=== PATIENT | male | born 1950 | race Caucasian/White ===

== ENCOUNTER 2019-08-20 13:26 | Inpatient (IN) | payer MEDICARE ==
[~2019-08-20] VITALS: Ht 182.9 cm; Wt 97.5 kg
[2019-08-20 14:00] LABS: BASO % 0.5 % (0.0-2.0); EOS # 0.2 (0.0-0.7); EOS % 2.6 % (0-4.0); GRAN % 72.4 % (42.2-75.2); HEMOGLOBIN 11.2 g/dl (13.5-18.0); LYMPH # 1.4 (1.2-3.4); LYMPH % 16.9 % (20.0-51.0); MEAN CELL VOLUME 92 fl (80.0-100.0); MEAN CORPUSCULAR HEMOGLOBIN 29 pg (27.0-31.0); MEAN CORPUSCULAR HGB CONC 32 g/dl (33.0-37.0); MEAN PLATELET VOLUME 9.6 fl (7.4-10.4); MONO # 0.6 (0.1-0.6); MONO % 7.2 % (1.7-9.3); PLATELET COUNT 192 K/mm3 (130-400); RED BLOOD COUNT 3.85 M/mm3 (4.20-5.60); REDCELL DISTRIBUTION WIDTH-CV 15.4 % (11.5-14.5)
[2019-08-20 14:01] LABS: HEMATOCRIT 35.3 % (42.0-52.0)
[2019-08-20 14:05] LABS: INR 1.6 (0.8-3.0); PROTHROMBIN TIME 19.4 SECONDS (9.7-12.8)
[2019-08-20 14:07] LABS: ALBUMIN 3.9 gm/dL (3.5-5.0); BILIRUBIN,TOTAL 0.4 mg/dL (0.0-1.0); CALCIUM 8.6 mg/dL (8.4-10.2); CREATININE, serum 2.12 (0.66-1.25); POTASSIUM 3.9 mmol/L (3.4-5.0); TOTAL PROTEIN 7.4 gm/dL (6.4-8.2)
[2019-08-20] MEDS ORDERED: LIPITOR 80MG80 MG PO (14:18)
[2019-08-20] MEDS ORDERED: TYLENOL 325MG325 MG PO (14:18)
[2019-08-20] MEDS ORDERED: COREG 25MG25 MG/TAB PO (14:19)
[2019-08-20] MEDS ORDERED: CALCITRIOL PO (14:19)
[2019-08-20 14:20] LABS: TROPONIN-I 0.016 ng/mL (0.000-0.035)
[2019-08-20] MEDS ORDERED: COLESTID 1GM1 G PO (14:20)
[2019-08-20] MEDS ORDERED: CLARITIN 1010 MG/TAB PO (14:20)
[2019-08-20] MEDS ORDERED: COUMADIN 1MG1 MG/TAB PO (14:21)
[2019-08-20] MEDS ORDERED: FLEXERIL 1010 MG/TAB PO (14:22)
[2019-08-20] MEDS ORDERED: LOMOTIL 0.025 M1 TAB PO (14:22)
[2019-08-20] MEDS ORDERED: COUMADIN 2MG2 MG/TAB PO (14:22)
[2019-08-20] MEDS ORDERED: IMDUR 30MG30 MG/TAB PO (14:23)
[2019-08-20] MEDS ORDERED: NEURONTIN600 MG/TAB PO (14:23)
[2019-08-20] MEDS ORDERED: ZESTRIL 20MG TA20 MG PO (14:24)
[2019-08-20] MEDS ORDERED: LANTUS100 U/ML SQ (14:24)
[2019-08-20] MEDS ORDERED: NITROSTAT0.4 MG/TAB SL (14:25)
[2019-08-20] MEDS ORDERED: GOOD NEIGH1200 MG/15 PO (14:25)
[2019-08-20] MEDS ORDERED: ZOFRAN ODT4 MG PO (14:26)
[2019-08-20] MEDS ORDERED: PERCOCET 325 MG1 TA2 PO (14:26)
[2019-08-20] MEDS ORDERED: FLOMAX 0.40.4 MG/CAP PO (14:26)
[2019-08-20] MEDS ORDERED: ULTRAM 50MG TAB50 MG PO (14:27)
[2019-08-20] MEDS ORDERED: VERELAN240 MG PO (14:27)
[2019-08-20] MEDS ORDERED: THERA-M W/MINER1 TAB PO (14:27)
[2019-08-20] MEDS ORDERED: ZOLOFT 100MG100 MG PO (14:28)
[2019-08-20] MEDS ORDERED: VITAMIN D32000 IU PO (14:28)
[2019-08-20 19:33] VITALS: BP 143/66; PULSE 75; TEMP 97.7
--- NOTE | 2019-08-20 21:00 | NUR ---
PT ARRIVED TO FLOOR, TRANSFERRED TO BED, SHAKY WHEN STANDING UP ON OWN BUT HAS A STEADY GAIT. PT IS ALERT AND ORIENTED BUT SEEMS SLIGHTLY CONFUSED STILL. SISTER WAS IN ROOM AND PT ASKED "WHO ELSE IS IN THE ROOM WITH YOU" WHEN THERE WAS NO ONE ELSE THERE. PT WAS INCONTINENT OF STOOL. CHANGED BRIEF, PROVIDED WILLIAM CARE, CHANGED BEDDING. SAYS THIS IS NORMAL FOR 7 YEARS AFTER COLON RESECTION. PT LLE EDEMETOUS CALF SLIGHTLY WARM AND EDEMETOUS, RLE NOT EDEMETOUS BUT SLIGHTLY REDDENED AT THE CALF AND WARM. PT COMPLAINT OF PAIN IN LOWER BACK NONE IN LOWER EXTREMITIES. OVERALL PLEASANT, BED IN LOWEST POSITION, TABLE AT BEDSIDE, CALL LIGHT WITHIN REACH, NO OTHER NEEDS AT THIS TIME.
--- NOTE | 2019-08-20 21:23 | NUR ---
PT IN BED, INCONTINENT OF STOOL, CHANGED BED, PROVIDED WILLIAM CARE, NEW GOWN PROVIDED. PT PLEASANT AND AOX4, SOME HEAT TO BLE, SWELLING IN LLE.CALL LIGHT IN PLACE, PEPSI AT BEDSIDE, PHONE AND PHONE MAINTENANCE SERVICES DISPATCHER IN PLACE, STATES PAIN 5/10 IN LOWER BACK. OVERALL PLEASANT, NO OTHER NEEDS AT THIS TIME.
--- NOTE | 2019-08-20 22:19 | NUR ---
INSULIN ADMINISTERED, INCONTINENT BOWEL AND BLADDER EPISODE, GOWN CHANGED, BRIEF CHANGED, SOCKS CHANGED. PT REQUESTED PEANUT BUTTER AND JELLY AND CRACKERS TO EAT, BROUGHT TO ROOM.
[2019-08-20 23:08] VITALS: BP 139/61; PULSE 71; TEMP 97.9
--- NOTE | 2019-08-21 01:25 | NUR ---
PT HEPARIN INC TO 12MLS/HR ACCORDING TO HEPARIN HIGH DOSE PROTOCOL. GINNA SHAH RN OBSERVED RATE CHANGE AND CONFIRMED CORRECT RATE.
[2019-08-21 03:18] VITALS: BP 129/56; PULSE 65; TEMP 98
--- NOTE | 2019-08-21 03:45 | NUR ---
ANOTHER BOWEL AND BLADDER INCONTINENT EPISODE, BEDDING CHANGED, GOWN CHANGED, BRIEF CHANGED.
--- NOTE | 2019-08-21 05:14 | NUR ---
PT IN BED, TABLE AT BEDSIDE, CALL LIGHT IN BED, CELL PHONE ON TABLE, PT COMPLAINING OF PAIN 5/10 IN LOWER BACK. MULTIPLE EPISODES OF BOWEL INCONTINENCE. UNABLE TO OBTAIN UA DUE TO INCONTINENCE. OVERALL AOX4, CANNOT TELL IF PT IS ALSO SLIGHTLY CONFUSED OR IF HIS EYE SIGHT IS HINDERING HIM. NO OTHER NEEDS AT THIS TIME.
[2019-08-21 07:39] VITALS: BP 151/74; PULSE 56; TEMP 98
[2019-08-21 07:50] LABS: BASO # 0.1 (0.0-0.2); BASO % 0.8 % (0.0-2.0); EOS # 0.3 (0.0-0.7); EOS % 3.4 % (0-4.0); GRAN # 4.9 (1.4-6.5); GRAN % 63.5 % (42.2-75.2); HEMOGLOBIN 10.8 g/dl (13.5-18.0); LYMPH # 1.9 (1.2-3.4); LYMPH % 24.5 % (20.0-51.0); MEAN CELL VOLUME 93 fl (80.0-100.0); MEAN CORPUSCULAR HEMOGLOBIN 29 pg (27.0-31.0); MEAN CORPUSCULAR HGB CONC 31 g/dl (33.0-37.0); MEAN PLATELET VOLUME 9.7 fl (7.4-10.4); MONO # 0.6 (0.1-0.6); MONO % 7.5 % (1.7-9.3); PLATELET COUNT 180 K/mm3 (130-400); RED BLOOD COUNT 3.74 M/mm3 (4.20-5.60); REDCELL DISTRIBUTION WIDTH-CV 15.6 % (11.5-14.5)
[2019-08-21 07:56] LABS: HEMATOCRIT 34.6 % (42.0-52.0); INR 1.7 (0.8-3.0); PROTHROMBIN TIME 19.6 SECONDS (9.7-12.8)
[2019-08-21 08:02] LABS: CALCIUM 8.5 mg/dL (8.4-10.2); CHOLESTEROL RISK RATIO 3.9; CREATININE, serum 1.77 (0.66-1.25); POTASSIUM 3.8 mmol/L (3.4-5.0)
--- NOTE | 2019-08-21 09:14 | NUR ---
Pt assessment complete. Pt had VQ scan this morning. Pt is alert but oriented to person only. Pt denies any pain at this time. Asking for the results from his test this morning. POC discussed with patient and his family. Pt denies any SOB. Heparin drip infusing per protocol, next hep Xa 1330. Pt has no further needs or concerns at this time. Call light within reach.
--- NOTE | 2019-08-21 10:46 | NUR ---
Initial visit; Patient thanked [employer]itor for looking in on him and offering encouragement and God's blessings.
[2019-08-21 12:05] VITALS: BP 155/72; PULSE 64; TEMP 98.3
[2019-08-21 12:22] LABS: CREATININE, serum 1.6 (0.66-1.25)
--- NOTE | 2019-08-21 17:48 | NUR ---
Discharge paperwork and instructions reviewed with patient and his nephew. All questions answered. IV to LAC dc'd catheter tip intact. Pt showered prior to leaving and wheeled out.
[2019-08-21 22:52] LABS: PH 7 (5-8); SQUAMOUS EPITHELIAL None Seen /hpf; URINE APPEARANCE Clear; URINE BACTERIA None Seen /hpf; URINE BILIRUBIN Negative (NEGATIVE); URINE BLOOD Negative (NEGATIVE); URINE COLOR Yellow; URINE GLUCOSE 3+ (NEGATIVE); URINE KETONE Negative (NEGATIVE); URINE LEUKOCYTE ESTERASE Negative (NEGATIVE); URINE NITRATE Negative (NEGATIVE); URINE PROTEIN(semi-quant) 2+ (NEGATIVE); URINE RBC 0-2 /hpf; URINE UROBILINOGEN Negative (NEGATIVE)
[2019-08-21 23:23] LABS: COLLECTION METHOD CLEAN CATCH
== END 2019-08-21 17:48 | disposition home or self-care (01) | DRG 313 ==
LOC: COL.ER 13:26 → MEDICAL 15:52
PROVIDERS: Emergency Medicine; Physician Assistant; ADMIT Student in an Organized Health Care Education/Training Program
DX: R07.9 Chest pain, unspecified (principal); N17.9 Acute kidney failure, unspecified; I25.10 Atherosclerotic heart disease of native coronary artery without angina pectoris; N40.0 Benign prostatic hyperplasia without lower urinary tract symptoms; E78.5 Hyperlipidemia, unspecified; E11.40 Type 2 diabetes mellitus with diabetic neuropathy, unspecified; F32.9 Major depressive disorder, single episode, unspecified; E11.65 Type 2 diabetes mellitus with hyperglycemia; D64.9 Anemia, unspecified; M79.89 Other specified soft tissue disorders; R79.1 Abnormal coagulation profile; G89.29 Other chronic pain; M54.9 Dorsalgia, unspecified; Z86.711 Personal history of pulmonary embolism; Z79.01 Long term (current) use of anticoagulants; Z85.038 Personal history of other malignant neoplasm of large intestine; Z86.73 Personal history of transient ischemic attack (TIA), and cerebral infarction without residual deficits; Z95.818 Presence of other cardiac implants and grafts; Z87.891 Personal history of nicotine dependence
CPT/HCPCS: 99222-AI; 99239; A9540; A9567; J1644; J1815; J2270; J2405; J7030